=== PATIENT | male | born 1965 | race Hispanic/Latino ===

== ENCOUNTER 2016-07-18 02:56 | Emergency (ER) | payer BC, OTHER ==
[2016-07-18 02:57] VITALS: BMI 29.5
--- NOTE | 2016-07-18 02:59 | ED PDOC ---
Arrival/HPI - General Time Seen by Provider: 07/18/16 02:59 Historian: Patient - History of Present Illness Narrative History of Present Illness (Text): 07/18/16 02:59 Link Palmer is a 50 year old male, whose past medical history includes asthma , who presents to the ED complaining of shortness of breath tonight. Patient denies any history of tobacco abuse, fever, chills, chest pain, nausea, vomiting, diarrhea, urinary symptoms, back pain, neck pain, headache, dizziness , or any other complaints. Time/Duration: Other (tonight) Symptom Onset: Gradual Symptom Course: Unchanged Activities at Onset: Rest, Light Context: Home Past Medical History - Provider Review Nursing Documentation Reviewed: Yes Family/Social History - Physician Review Nursing Documentation Reviewed: Yes Family/Social History: No Known Family HX Allergies/Home Meds Allergies/Adverse Reactions: Allergies No Known Allergies Allergy (Verified 07/18/16 02:57) Home Medications: Home Meds Medication Instructions Recorded Confirmed Amlodipine Bes/Olmesartan Med 1 each PO DAILY 07/18/16 07/18/16 [Kaila 10-20 mg Tablet] Review of Systems - Physician Review All systems were reviewed & negative as marked: Yes - Review of Systems Constitutional: Normal. absent: Fevers Eyes: Normal ENT: Normal Respiratory: SOB Cardiovascular: Normal. absent: Chest Pain Gastrointestinal: Normal. absent: Abdominal Pain, Diarrhea, Nausea, Vomiting Genitourinary Male: Normal. absent: Dysuria, Frequency, Hematuria, Urinary Output Changes Musculoskeletal: Normal. absent: Back Pain, Neck Pain Skin: Normal. absent: Rash Neurological: Normal. absent: Headache, Dizziness Endocrine: Normal Hemo/Lymphatic: Normal Psychiatric: Normal Physical Exam Vital Signs Reviewed: Yes Vital Signs Temp Pulse Resp BP Pulse Ox 07/18/16 05:09 84 18 108/68 95 07/18/16 03:10 18 07/18/16 03:06 98 F 99 H 18 152/75 H 100 Temperature: Afebrile Blood Pressure: Normal Pulse: Regular Respiratory Rate: Normal Appearance: Positive for: Well-Appearing, Non-Toxic, Comfortable Pain Distress: None Mental Status: Positive for: Alert and Oriented X 3 - Systems Exam Head: Present: Atraumatic, Normocephalic Pupils: Present: PERRL Extroacular Muscles: Present: EOMI Conjunctiva: Present: Normal Mouth: Present: Moist Mucous Membranes Neck: Present: Normal Range of Motion Respiratory/Chest: Present: Wheezes. No: Respiratory Distress, Accessory Muscle Use Cardiovascular: Present: Regular Rate and Rhythm, Normal S1, S2. No: Murmurs Abdomen: Present: Normal Bowel Sounds. No: Tenderness, Distention, Peritoneal Signs Back: Present: Normal Inspection Upper Extremity: Present: Normal Inspection. No: Cyanosis, Edema Lower Extremity: Present: Normal Inspection. No: Edema Neurological: Present: GCS=15, CN II-XII Intact, Speech Normal Skin: Present: Warm, Dry, Normal Color. No: Rashes Psychiatric: Present: Alert, Oriented x 3, Normal Insight, Normal Concentration Medical Decision Making ED Course and Treatment: 07/18/16 02:59 Impression: 50 year old male complaining of shortness of breath tonight. Differential Diagnosis include but are not limited to: asthma Plan: -- CXR -- Duoneb -- Solu-medrol -- Reassess and disposition Progress Notes: 07/18/16 04:24 Reviewed radiology, Chest X-ray shows no active disease. 07/18/16 04:55 On re-evaluation, the patient feels better and is in no acute distress. I have discussed the results and plan with the patient, who expresses understanding. Patient in agreement with plan to discharged home. Patient is stable for discharge. Patient was instructed to follow up with physician/clinic in 1-2 days or return if symptoms worsen or new concerning symptoms arise. - RAD Interpretation Radiology Orders: 07/18/16 04:01 CHEST PORTABLE [RAD] Stat - Medication Orders Current Medication Orders: Discontinued Medications Albuterol/Ipratropium (Duoneb 3 Mg/0.5 Mg (3 Ml) Ud) 3 ml IH Q15M [facility] Stop: 07/18/16 03:46 Last Admin: 07/18/16 03:54 Dose: 3 ML Methylprednisolone (Solu-Medrol) Confirm Administered Dose 125 mg .ROUTE .STK- MED ONE Stop: 07/18/16 03:03 Last Admin: 07/18/16 03:12 Dose: 125 MG Methylprednisolone (Solu-Medrol) 125 mg IVP ONCE ONE Stop: 07/18/16 03:11 Last Admin: 07/18/16 03:12 Dose: - Scribe Statement The provider has reviewed the documentation as recorded by the Scribe Judy Skyler Provider Attestation: All medical record entries made by the Jasonibe were at my direction and personally dictated by me. I have reviewed the chart and agree that the record accurately reflects my personal performance of the history, physical exam, medical decision making, and the department course for this patient. I have also personally directed, reviewed, and agree with the discharge instructions and disposition. Disposition/Present on Arrival - Present on Arrival Any Indicators Present on Arrival: No - Disposition Have Diagnosis and Disposition been Completed?: Yes Diagnosis: Asthma Disposition: HOME/ ROUTINE Disposition Time: 03:00 Condition: FAIR Discharge Instructions (ExitCare): Asthma (DC) Prescriptions: Albuterol HFA [Ventolin HFA] 1 puff IH QID #1 puff predniSONE [predniSONE Tab] 20 mg PO TID #15 tab
[2016-07-18 03:07] VITALS: RESP 18; TEMP 98
[2016-07-18] MEDS: Albuterol-Ipratrop 3 mg / 0.5 (3 ml) UD IH SCH ×4 (03:13→03:54)
[2016-07-18 05:10] VITALS: BP 108/68; PULSE 84; O2SAT 95
--- NOTE | 2016-07-18 08:29 | RAD ---
HISTORY: cp COMPARISON: No prior. FINDINGS: LUNGS: No active pulmonary disease. PLEURA: No significant pleural effusion identified, no pneumothorax apparent. CARDIOVASCULAR: Normal. OSSEOUS STRUCTURES: No significant abnormalities. VISUALIZED UPPER ABDOMEN: Normal. OTHER FINDINGS: None. IMPRESSION: No active disease.
== END 2016-07-18 05:15 | disposition home or self-care (01) ==
LOC: ED 02:56
DX: J45.909 Unspecified asthma, uncomplicated (principal)
CPT/HCPCS: 71010; 99283; J2930